=== PATIENT | male | born 1970 | race Caucasian/White ===

== ENCOUNTER 2016-07-29 21:37 | Emergency (ER) | payer BC ==
[~2016-07-29] VITALS: Ht 172.7 cm; Wt 99.8 kg
[2016-07-29 21:50] VITALS: BP_SYST 158
[2016-07-29 22:46] VITALS: BP_SYST 142
== END 2016-07-29 22:39 ==
LOC: SED 21:37
DX: J20.9 Acute bronchitis, unspecified (principal)
CPT/HCPCS: 71010; 99283